=== PATIENT | female | born 1990 | race Caucasian/White ===

== ENCOUNTER 2021-04-07 10:31 | Emergency (ER) | payer OTHER, SELFPAY ==
--- NOTE | ~2021-04-07 | CT_ITS ---
EXAMINATION: CT ABDOMEN AND PELVIS WITH CONTRAST CLINICAL INFORMATION: Lower abdominal pain. Question appendicitis. COMPARISON: Pelvic ultrasound obtained the same day TECHNIQUE: Multidetector volumetric images were obtained from the superior aspect of the liver through the pubic symphysis following administration 85 mL of Omnipaque 350 intravenous contrast. Sagittal and coronal reformatted images were obtained on the technologist's workstation. Oral contrast: Yes This CT examination was performed using dose optimization techniques as appropriate, variously including the following: *Automated exposure control *Adjustment of mA and/or kV according to patient size (this includes techniques or standardized protocols for targeted exams where dose is matched to indication/reason for exam; i.e. extremities or head) *Use of iterative reconstruction technique DLP: 1113 mGy-cm FINDINGS: LUNG BASES: The visualized lung bases are unremarkable. LIVER, GALLBLADDER, AND BILIARY TREE: The liver is normal in size, shape, and attenuation. No focal hepatic lesion or biliary ductal dilatation is present. The gallbladder is unremarkable with no evidence of radiopaque gallstones, gallbladder wall thickening, or obvious pericholecystic inflammatory changes. PANCREAS: Unremarkable. SPLEEN: Unremarkable. ADRENAL GLANDS: Unremarkable. KIDNEYS AND URETERS: The kidneys are normal in size, shape, and attenuation. No hydronephrosis, hydroureter, or calculi seen. There is excreted contrast seen in the collecting systems and ureters. This lowers sensitivity for detection of a small stone. BLADDER: Unremarkable. GASTROINTESTINAL TRACT: The small and large bowel are unremarkable. The appendix is unremarkable. ABDOMINAL WALL: No significant hernia is appreciated. LYMPH NODES: Normal. VASCULAR: Unremarkable. PELVIC VISCERA: The uterus and adnexa appear unremarkable. There is a small amount of fluid in the pelvis. OSSEOUS STRUCTURES: Unremarkable. CT/CT abdomen pelvis w con IMPRESSION: Normal-appearing appendix. Small amount of fluid in the pelvis. Otherwise unremarkable exam.
--- NOTE | ~2021-04-07 | US_ITS ---
EXAMINATION: PELVIC ULTRASOUND CLINICAL INFORMATION: Severe cervical motion tenderness. Rule out ovarian torsion or abscess. COMPARISON: CT of the abdomen and pelvis performed the same day TECHNIQUE: Transabdominal and transvaginal pelvic ultrasound was performed. Transvaginal exam was performed for better visualization of the uterus and ovaries. FINDINGS: Exam is limited due to patient body habitus and bowel gas. The uterus is anteverted and measures 7.7 x 3.1 x 4.8 cm in dimension. No focal uterine lesion is seen. Endometrial thickness is normal measuring 0.5 cm. There are nabothian cysts seen in the cervix. There is a thickening and small amount of fluid seen in the endocervical canal. The ovaries are not identified. There is a small amount of fluid in the pelvis. US/US pelvic and transvaginal IMPRESSION: Limited exam. Normal-appearing uterus. Thickening and small amount of fluid in the endocervical canal. The ovaries are not seen. Ovarian torsion cannot be evaluated. Small amount of fluid in the pelvis.
--- NOTE | ~2021-04-07 | US_ITS ---
EXAMINATION: ULTRASOUND PELVIS AND TRANSVAGINAL. CLINICAL INFORMATION: Evaluate for ovarian torsion. Pain. Severe cervical motion tenderness. COMPARISON: None TECHNIQUE: Transabdominal and transvaginal imaging of pelvis is performed. FINDINGS: The uterus is anteverted and anteflexed measuring 7.7 cm in length of 2.1 cm in AP and 4.8 cm in transverse dimension. Endometrial thickness is 0.5 cm. No focal lesion seen. There are several anechoic cysts seen in the cervix suggestive of nabothian cyst. Some of the cysts appear complex. Both ovaries are not visualized at this time. Due to nonvisualization of ovaries no Doppler exam was performed. There is moderate free fluid in right adnexa. US/US pelvic ovarian doppler IMPRESSION: Unremarkable uterus. Anechoic cyst in the lower uterine segment and cervix likely simple cysts. Some of them are echogenic and complex. Both ovaries are not seen with certainty.. No Doppler was performed.
[2021-04-07 10:36] VITALS: BP 129/79; BP 144/83; PULSE 76; PULSE 90; RESP 22; TEMP 37; O2SAT 100; O2SAT 98; BMI 49.4
[2021-04-07 11:19] LABS: MANUAL DIFF FLAG NO
[2021-04-07 11:21] LABS: Basophils Percent Auto 0.2 % (0-2); Eosinophils Absolute Auto 0.1 X10*3/uL (0.0-0.4); Hemoglobin 12.8 g/dl (12.0-16.0); Imm Gran Abs Auto 0.03 X10*3/uL (0.00-0.03); Imm Gran Pct Auto 0.3 % (0.0-0.4); Lymphocytes Absolute Auto 1.6 X10*3/uL (1.2-4.9); Lymphocytes Percent Auto 16.8 % (20-40); Mean Corpuscular HGB Conc 33.7 g/dl (31.0-35.0); Mean Corpuscular Volume 83.2 fL (80-98); Mean Platelet Volume 9.9 fL (9.4-12.3); Monocytes Absolute Auto 0.5 X10*3/uL (0.1-1.2); Monocytes Percent Auto 5.1 % (2-11); Neutrophils Absolute Auto 7.5 X10*3/uL (2.0-8.3); Neutrophils Percent Auto 76.6 % (45-73); Platelet Count 330 X10*3/uL (160-400); Red Blood Count 4.57 X10*6/uL (4.20-5.50); Red Cell Distribution Width 14.5 % (11.0-16.0); White Blood Count 9.8 X10*3/uL (4.8-10.8)
[2021-04-07] MEDS: 0.9 % Sodium Chloride 1,000 ML 999 ML IV (11:26)
[2021-04-07] MEDS: ondansetron HCL 4 MG/2 ML VIAL IVPUSH (11:26)
--- NOTE | 2021-04-07 11:32 | ED.ABDPAIN ---
HPI - Abdominal Pain General Chief Complaint: Abdominal Pain Stated Complaint: ABD PAIN Time Seen by Provider: 04/07/21 11:54 Source: patient Mode of arrival: ambulatory Limitations: no limitations History of Present Illness HPI narrative: Patient presents to ED for cervical pain. Patient states feeling somebody stabbing her cervix. Patient admits to recent unprotected sexual activity. Patient denies any vaginal discharge or vaginal bleeding. Patient denies any flank pain, nausea, vomiting, fever, chills, or any abdominal pain. Patient states pain flexing the cervix. Patient admits to history of herpes but no lesions on vaginal labia. Patient denies any recent foreign body placement or IUD implantation. MD elicited complaint: abdominal pain Related Data Previous Rx's Medication Instructions Recorded doxycycline hyclate 100 mg PO BID 10 Days #19 tab 04/07/21 metronidazole 500 mg PO BID 7 Days #14 tab 04/07/21 naproxen 500 mg PO BID PRN #20 tab 04/07/21 Allergies Allergy/AdvReac Type Severity Reaction Status Date / Time Penicillins Allergy Hives Verified 04/07/21 10:59 tramadol Allergy Hives Verified 04/07/21 10:59 Review of Systems Review of Systems Yes all other systems are reviewed and are negative Constitutional: Reports as per HPI and Reports no additional constitutional complaints Eyes: Reports as per HPI and Reports no additional eye complaints Reports system reviewed and no additional complaints, except as documented and Reports as per HPI Cardiovascular: Reports as per HPI and Reports no additional cardiovascular complaints Respiratory: Reports as per HPI and Reports no additional respiratory complaints Gastrointestinal: Reports as per HPI and Reports no additional gastrointestinal complaints Genitourinary: Reports no additional female genitourinary complaints and Reports as per HPI Comments: Cervical pain Musculoskeletal: Reports no additional musculoskeletal complaints and Reports as per HPI Reports system reviewed and no additional complaints, except as documented and Reports as per HPI Psychiatric: Reports no additional psychiatric complaints and Reports as per HPI Physical Exam Vital Signs: Vital Signs: Last Vital Signs Temp 98.2 F 04/07/21 15:33 Pulse 63 04/07/21 15:33 Resp 22 H 04/07/21 15:33 BP 140/75 H 04/07/21 15:33 Pulse Ox 100 04/07/21 15:33 Body Mass Index 49.4 Const: General: cooperative, healthy appearing, comfortable, well developed, alert, awake and acute distress Orientation/consciousness: patient oriented x3 HENMT: Head: Yes normal to inspection, Yes No palpable skull fracture present, Yes normocephalic, Yes atraumatic and No abrasion Eyes: General: appearance normal, both eyes and all related structures Neck: Neck: Yes normal visual inspection, Yes full ROM, Yes no lymphadenopathy, Yes no meningeal signs, Yes trachea midline, Yes supple and No tender Chest: Chest palpation & inspection: normal inspection of the chest and normal palpation of entire chest wall Resp: Effort & Inspection: normal respiratory effort and able to speak in complete sentences Cardio: Jugular venous distension: no JVD Heart sounds: S1 normal heart sound present and S2 normal heart sound present GI: Inspection: Yes normal to inspection and No abdominal wall ecchymosis Palpation (GI): Soft to palpation, not firm, nontender, no guarding and not rigid : Other: negative for vaginal lesions. Positive for yellowish mucus discharge from cervix. Negative for lesions on the cervix. Positive for severe significant CMT. Negative for adnexal tenderness. General: No CVA tenderness and Yes no CVA tenderness Back/Spine/Pelvis: Back: no CVA tenderness, No CVA tenderness and No back tenderness Skin: General skin exam: no rashes or lesions noted and elasticity normal Neuro: General: patient oriented x3, gait normal, no meningeal signs and CN's II-XI intact bilaterally Cranial nerves: Yes CN's II-XII intact bilaterally Extrem: General: Yes normal to inspection and Yes full ROM Psych: Appearance: grossly normal, well kempt and not disheveled Course Course Course Narrative: patient will have labs drawn. When his femur sharper available will do pelvic exam and send chlamydia gonorrhea swab. Possible imaging most likely ultrasound. Pending Reevaluation(s) Reevaluation #1: Pelvic exam positive for significant CMT. negative for adnexal tenderness. Negative for any vaginal lesions. Cervix negative for any lesions. Positive for discharged from cervix. Negative for any signs of abscess a laceration of cervix vaginal labia, or vaginal leonardo. Cervical swabs for chlamydia gonorrhea, trich, BV was sent. HSV swab was sent also although there was no lesion. We will send for imaging such as ultrasound to rule out any torsion or ovarian abscess. Patient also was sent for CT scan to rule out appendicitis Although very unlikely due to patient not having any right lower quadrant pain. Patient given ceftriaxone in 1st dose of doxy Time: 13:22 Reevaluation #2: CT scan negative for any intra-abdominal processes. Pelvic ultrasound shows fluid in endocervical canal. deu To patient size Ultrasound was not able to evaluate ovaries for ovarian torsion, but CT scan was negative for ovarian cyst. Patient did not have any adnexal tenderness on palpation. although chlamydia gonorrhea came back negative patient will be still treated as PID/pelvic pain. Imaging results, history, physical exam was discussed with Dr. Payan and is agreement with plan. Time: 18:10 MDM - Abdominal Pain MDM Narrative Medical decision making narrative: PID. Pelvic pain Lab Data Result diagrams: 04/07/21 11:11 04/07/21 11:49 Labs: Lab Results 04/07/21 04/07/21 04/07/21 Range/Units 11:11 11:27 11:27 WBC 9.8 (4.8-10.8) X10*3/uL RBC 4.57 (4.20-5.50) X10*6/uL Hgb 12.8 (12.0-16.0) g/dl Hct 38.0 (37-47) % MCV 83.2 (80-98) fL MCH 28.0 (27.0-33.0) pg MCHC 33.7 (31.0-35.0) g/dl RDW 14.5 (11.0-16.0) % Plt Count 330 (160-400) X10*3/uL MPV 9.9 (9.4-12.3) fL Immature Gran % (Auto) 0.3 (0.0-0.4) % Neut % (Auto) 76.6 H (45-73) % Lymph % (Auto) 16.8 L (20-40) % Bowman % (Auto) 5.1 (2-11) % Eos % (Auto) 1.0 (0-4) % Baso % (Auto) 0.2 (0-2) % Lymph # (Auto) 1.6 (1.2-4.9) X10*3/uL Bowman # (Auto) 0.5 (0.1-1.2) X10*3/uL Eos # (Auto) 0.1 (0.0-0.4) X10*3/uL Baso # (Auto) 0.0 (0.0-0.2) X10*3/uL Abs Immat Gran (auto) 0.03 (0.00-0.03) X10*3/uL Absolute Neuts (auto) 7.5 (2.0-8.3) X10*3/uL Absolute Nucleated RBC 0.000 (0.0-0.012) X10*3/uL Nucleated RBC % (auto) 0.0 (0.0-0.2) /100WBC Sodium (135-145) mmol/L Potassium (3.3-5.1) mmol/L Chloride (96-108) mmol/L Carbon Dioxide (22-29) mmol/L Anion Gap (12-20) BUN (9-16) mg/dL Creatinine (0.5-1.4) mg/dL Estim Creat Clear Calc Estimated GFR Random Glucose (60-115) mg/dL Calcium (8.4-10.2) mg/dL Total Bilirubin (0.0-1.0) mg/dL AST (5-31) U/L ALT (0-31) U/L Alkaline Phosphatase (39-117) U/L Total Protein (6.5-8.0) g/dL Albumin (3.5-5.0) g/dL Urine Color YELLOW Urine Appearance HAZY Urine pH 7.5 (5.0-8.0) Ur Specific Comstock 1.020 (1.005-1.025) Urine Protein NEG (NEG-TRACE) MG/DL Urine Glucose (UA) NEG (NEG) MG/DL Urine Ketones NEG (NEG) MG/DL Urine Blood NEG (NEG) Urine Nitrite NEG (NEG) Ur Leukocyte Esterase NEG (NEG) Urine Test NEGATIVE (NEGATIVE) Chlam trachomat DNA PCR (Not Detect.) N.gonorrhoeae DNA (PCR) (Not Detect.) 04/07/21 04/07/21 Range/Units 11:49 12:54 WBC (4.8-10.8) X10*3/uL RBC (4.20-5.50) X10*6/uL Hgb (12.0-16.0) g/dl Hct (37-47) % MCV (80-98) fL MCH (27.0-33.0) pg MCHC (31.0-35.0) g/dl RDW (11.0-16.0) % Plt Count (160-400) X10*3/uL MPV (9.4-12.3) fL Immature Gran % (Auto) (0.0-0.4) % Neut % (Auto) (45-73) % Lymph % (Auto) (20-40) % Bowman % (Auto) (2-11) % Eos % (Auto) (0-4) % Baso % (Auto) (0-2) % Lymph # (Auto) (1.2-4.9) X10*3/uL Bowman # (Auto) (0.1-1.2) X10*3/uL Eos # (Auto) (0.0-0.4) X10*3/uL Baso # (Auto) (0.0-0.2) X10*3/uL Abs Immat Gran (auto) (0.00-0.03) X10*3/uL Absolute Neuts (auto) (2.0-8.3) X10*3/uL Absolute Nucleated RBC (0.0-0.012) X10*3/uL Nucleated RBC % (auto) (0.0-0.2) /100WBC Sodium 137 (135-145) mmol/L Potassium 4.1 (3.3-5.1) mmol/L Chloride 107 (96-108) mmol/L Carbon Dioxide 24 (22-29) mmol/L Anion Gap 10 L (12-20) BUN 10 (9-16) mg/dL Creatinine 0.69 (0.5-1.4) mg/dL Estim Creat Clear Calc 174.5 Estimated GFR > 60 Random Glucose 98 (60-115) mg/dL Calcium 8.3 L (8.4-10.2) mg/dL Total Bilirubin 0.4 (0.0-1.0) mg/dL AST 12 (5-31) U/L ALT 11 (0-31) U/L Alkaline Phosphatase 83 (39-117) U/L Total Protein 6.4 L (6.5-8.0) g/dL Albumin 3.5 (3.5-5.0) g/dL Urine Color Urine Appearance Urine pH (5.0-8.0) Ur Specific Comstock (1.005-1.025) Urine Protein (NEG-TRACE) MG/DL Urine Glucose (UA) (NEG) MG/DL Urine Ketones (NEG) MG/DL Urine Blood (NEG) Urine Nitrite (NEG) Ur Leukocyte Esterase (NEG) Urine Test (NEGATIVE) Chlam trachomat DNA PCR NOT DETECTED (Not Detect.) N.gonorrhoeae DNA (PCR) NOT DETECTED (Not Detect.) Discharge Plan Discharge Clinical Impression: Acute pelvic inflammatory disease (PID) Patient Disposition: Home, Self-Care Instructions: Pelvic Inflammatory Disease (ED), Pelvic Pain (ED) Additional Instructions: return to the ED for worsening abdominal pain, nausea, vomiting, fever, chills, flank pain, or any other concerning symptoms. Your blood work came back normal. Your urine came back negative for UTI. CT scan did not show any intra-abdominal acute processes. Ultrasound show endocervical canal thickening and fluid. Please follow up with PCP and OBGYN. Prescriptions: New doxycycline hyclate 100 mg tablet 100 mg PO BID 10 Days Qty: 19 RF: 0 metronidazole 500 mg tablet 500 mg PO BID 7 Days Qty: 14 RF: 0 naproxen 500 mg tablet 500 mg PO BID PRN (Reason: pain) Qty: 20 RF: 0 Stand Alone Forms: Work/School Release Interventions: ED Discharge Assessment Last Done: 04/07/21 18:26 Discharge Date/Time: 04/07/21 18:26 Print Language: Polish [facility] Social History Social History Alcohol intake: never Patient Tobacco Use Status: Never used Tobacco Smoked in Last 30 Days: No Use of substances other than those prescribed or required for medical reasons: Yes Substance Use Type: Marijuana Substance Use Frequency: Daily Advance Directives: No Advance Directives Information Provided: No Patient : No
[2021-04-07 12:01] LABS: Glucose Urine UA NEG (NEG); Leukocyte Esterase Urine NEG (NEG); Nitrite Urine NEG (NEG); PH 7.5 (5.0-8.0); Urine Blood NEG (NEG); Urine Ketones NEG (NEG); Urine Protein NEG (NEG-TRACE)
[2021-04-07 12:12] VITALS: BP 114/79; PULSE 62; RESP 18; TEMP 36.7; O2SAT 99
[2021-04-07 12:21] LABS: Alanine Aminotransferase 11 U/L (0-31); Albumin Level 3.5 g/dL (3.5-5.0); Alkaline Phosphatase 83 U/L (39-117); Anion Gap 10 (12-20); Aspartate Amino Transferase 12 U/L (5-31); Bilirubin Total 0.4 mg/dL (0.0-1.0); Blood Urea Nitrogen 10 mg/dL (9-16); Calcium 8.3 mg/dL (8.4-10.2); Carbon Dioxide 24 mmol/L (22-29); Chloride 107 mmol/L (96-108); Creatinine Clr Calc Pharmacy 174.5; Estimated Glomerular Filt Rate > 60; Glucose Random 98 mg/dL (60-115); Potassium 4.1 mmol/L (3.3-5.1); Sodium 137 mmol/L (135-145); Total Protein 6.4 g/dL (6.5-8.0)
[2021-04-07 12:26] LABS: Appearance Urine HAZY; Color Urine YELLOW; Urine Pregnancy NEGATIVE (NEGATIVE)
[2021-04-07 12:27] LABS: UPreg QC Valid YES
[2021-04-07] MEDS: Ketorolac Tromethamine 30 MG/ML VIAL IVPUSH (12:33)
[2021-04-07] MEDS: cefTRIAXone sodium 500 MG, Lidocaine HCl 1 % MPF 1 ML IM (13:10)
[2021-04-07 14:33] LABS: CT PCR NOT DETECTED (Not Detect.); NG PCR NOT DETECTED (Not Detect.)
[2021-04-07] MEDS: iohexoL 350 MG/ML 100 ML INFUS..BTL IV (15:26)
[2021-04-07 15:33] VITALS: BP 140/75; PULSE 63; RESP 22; TEMP 36.8; O2SAT 100
[2021-04-07] MEDS: Morphine Sulfate 4 MG/ML CARTRIDGE IVPUSH (16:18)
[2021-04-08 11:57] LABS: BV Int Neg Control Negative (Negative); BV Int Pos Control Positive (Positive)
== END 2021-04-07 18:26 | disposition home or self-care (01) ==
PROVIDERS: Physician Assistant; Emergency Provider Emergency Medicine Emergency Medical Services
DX: N73.0 Acute parametritis and pelvic cellulitis (principal); Z72.51 High risk heterosexual behavior
CPT/HCPCS: 36415; 74177; 76830; 76856; 80053; 81003; 81025; 85025; 87255; 87480; 87491; 87510; 87591; 87660; 93975; 96361; 96372; 96374; 96375; 99285; J0696; J1885; J2270; J2405; Q9967

== ENCOUNTER 2021-04-22 11:14 | Emergency (ER) | payer OTHER, SELFPAY ==
--- NOTE | ~2021-04-22 | XR_ITS ---
EXAMINATION: LEFT KNEE AND LEFT LOWER LEG X-RAY CLINICAL INFORMATION: Fall. Unable to ambulate. COMPARISON: None TECHNIQUE: 4 views of the left knee and 2 views of the left lower leg FINDINGS: Left knee: Bone alignment is normal. No fracture or dislocation is seen spaces are normal. There is no joint effusion. Left lower leg: Bone alignment is is normal. No fracture or dislocation is seen. Joint spaces are normal. Soft tissues are normal. XR/XR tibia fibula LT 2V IMPRESSION: Unremarkable exam.
--- NOTE | ~2021-04-22 | XR_ITS ---
EXAMINATION: LEFT KNEE AND LEFT LOWER LEG X-RAY CLINICAL INFORMATION: Fall. Unable to ambulate. COMPARISON: None TECHNIQUE: 4 views of the left knee and 2 views of the left lower leg FINDINGS: Left knee: Bone alignment is normal. No fracture or dislocation is seen spaces are normal. There is no joint effusion. Left lower leg: Bone alignment is is normal. No fracture or dislocation is seen. Joint spaces are normal. Soft tissues are normal. XR/XR knee LT 3V IMPRESSION: Unremarkable exam.
[2021-04-22 11:33] VITALS: BP 130/70; BP 138/51; PULSE 79; PULSE 85; RESP 18; TEMP 37; O2SAT 96; O2SAT 99; BMI 49.2
--- NOTE | 2021-04-22 11:37 | ED_ITS ---
HPI - Extremity Injury (Lower) General Chief Complaint: Extremity Injury, Lower Stated Complaint: ankle pain Time Seen by Provider: 04/22/21 11:35 Source: patient Mode of arrival: EMS Limitations: no limitations History of Present Illness HPI Narrative: Patient is a 31-year-old female with a past medical history of left knee sprain approximately 18 months ago, complaining of re-injury of left knee last evening. Patient states in December of 2019, she slipped at work and fell, she sprained her knee and has an MRI with unknown results on a disc with her. She went to physical therapy and was feeling completely better until she was walking up the stairs last night and she fell, she injured her right knee and right lower leg and was unable to get up after the fall or take any steps. She states she took gabapentin and Percocet with no relief. Today, the pain is worse, even if she is sitting still, so she called 911 to bring her to the emergency room. Related Data Previous Rx's Medication Instructions Recorded doxycycline hyclate 100 mg PO BID 10 Days #19 tab 04/07/21 metronidazole 500 mg PO BID 7 Days #14 tab 04/07/21 naproxen 500 mg PO BID PRN #20 tab 04/07/21 oxycodone 5 mg PO Q6H PRN #10 cap 04/22/21 Allergies Allergy/AdvReac Type Severity Reaction Status Date / Time Penicillins Allergy Hives Verified 04/22/21 11:32 tramadol Allergy Hives Verified 04/22/21 11:32 Review of Systems Review of Systems: Yes all other systems are reviewed and are negative [facility] Past Medical History Medical History Anxiety Asthma Depression Social History Social History Alcohol intake: never Patient Tobacco Use Status: Never used Tobacco Substance Use Type: Marijuana Advance Directives: No Advance Directives Information Provided: Yes Patient : No Physical Exam Vital Signs: Vital Signs: Last Vital Signs Temp 98.6 F 04/22/21 11:33 Pulse 79 04/22/21 11:33 Resp 18 04/22/21 11:33 BP 138/51 L 04/22/21 11:33 Pulse Ox 99 07/16/21 11:33 Body Mass Index 49.2 Const: General: cooperative, healthy appearing, comfortable and no acute distress Nutritional Appearance: obese Orientation/consciousness: patient oriented x3 Limitations: other limitations (Unable to ambulate on left leg) HENMT: Head: Yes normal to inspection, Yes No palpable skull fracture present, Yes normocephalic and Yes atraumatic Eyes: General: appearance normal, both eyes and all related structures Neck: Neck: Yes normal visual inspection and Yes full ROM Resp: Effort & Inspection: normal respiratory effort and able to speak in complete sentences Neuro: General: patient oriented x3 Extrem: Other: Left knee edema on the lateral side as well as inferior to the knee, very tender in the same areas. Patient able to flex and extend with pain. Unable to assess gait. No signs of infection noted, no ecchymosis, no lacerations. Pedal pulses intact, sensation intact, 2/5 strength LLE Course Course Course Narrative: Toradol and Oxy in ED for pain. Patient is here with her mother and is not driving home. Reevaluation(s) Reevaluation #1: PT came to the ED to evaluate the patient, after an ambulation trial, they advised she can use crutches to go up and down the stairs and then use her walker at home. Patient has a walker at home because she uses 1 at her baseline. MDM - Extremity Injury (Lower) Imaging Data left knee and lower leg xray: Attestation: I personally reviewed and interpreted this imaging study as follows: Radiologist's impression: [address] [id number] ReportSigned Patient: Rajesh Zuniga#: [id number]: 1990Acct:[id number]/Sex: 31 / FADM Date: 04/22/21Loc: HO.EDAttending Dr: Ordering Physician: Barbara He PA-C Date of Service: 04/22/21 Procedure(s): XR knee LT 3V Accession Number(s): [id number] cc: Barbara He PA-C~ EXAMINATION: LEFT KNEE AND LEFT LOWER LEG X-RAY CLINICAL INFORMATION: Fall. Unable to ambulate. COMPARISON: None TECHNIQUE: 4 views of the left knee and 2 views of the left lower leg FINDINGS: Left knee: Bone alignment is normal. No fracture or dislocation is seen spaces are normal. There is no joint effusion. Left lower leg: Bone alignment is is normal. No fracture or dislocation is seen. Joint spaces are normal. Soft tissues are normal. XR/XR knee LT 3V IMPRESSION: Unremarkable exam. Dictated By:LILLIAN JORGENSEN MDSigned By:<Electronically signed by LILLIAN JORGENSEN MD in OV>04/22/21 1215 DD/ 1135TD/TT: Secondary English Teacher: SHIREEN Discharge Plan Discharge Clinical Impression: Bursitis due to trauma, Acute pain of left knee Patient Disposition: Home, Self-Care Instructions: Knee Bursitis (ED) Additional Instructions: Please rest, use ice and ibuprofen, 600 mg every 6 hours for the next 3-4 days as needed for pain. If her pain does not improve a little bit every day over the next 3-5 days, please follow-up with your PCP as you may need physical therapy. Prescriptions: New oxycodone 5 mg capsule 5 mg PO Q6H PRN (Reason: pain) Qty: 10 RF: 0 No Action doxycycline hyclate 100 mg tablet 100 mg PO BID 10 Days Qty: 19 RF: 0 metronidazole 500 mg tablet 500 mg PO BID 7 Days Qty: 14 RF: 0 naproxen 500 mg tablet 500 mg PO BID PRN (Reason: pain) Qty: 20 RF: 0
[2021-04-22] MEDS: Ketorolac Tromethamine 60 MG/2 ML VIAL IM (13:22)
--- NOTE | 2021-04-22 13:30 | PC.NURSE ---
Pt states she was unable to bear weight and ambulate with walker at home. This RN will premedicate and attempt walker use again.
[2021-04-22] MEDS: oxyCODONE HCl Immed Release 5 MG TABLET PO (13:51)
--- NOTE | 2021-04-22 14:30 | PC.NURSE ---
PT aware of need for eval. Will come to ED shortly. Pt aware
--- NOTE | 2021-04-22 14:50 | PC.NURSE ---
PT at bedside.
[2021-04-22 15:16] VITALS: BP 138/51; PULSE 79; O2SAT 99
== END 2021-04-22 15:59 | disposition home or self-care (01) ==
PROVIDERS: Emergency Provider Emergency Medicine
DX: G89.11 Acute pain due to trauma (principal); M25.562 Pain in left knee; M71.562 Other bursitis, not elsewhere classified, left knee
CPT/HCPCS: 73562; 73590; 96372; 97161; 99283; 99284; J1885

== ENCOUNTER 2021-05-27 08:42 | Emergency (ER) | payer OTHER, SELFPAY ==
--- NOTE | ~2021-05-27 | CT_ITS ---
EXAMINATION: CT ABDOMEN AND PELVIS WITH CONTRAST CLINICAL INFORMATION: Right lower quadrant pain COMPARISON: 04/07/2021 TECHNIQUE: Multidetector volumetric images were obtained from the superior aspect of the liver through the pubic symphysis following administration 85 mL of Omnipaque 350 intravenous contrast. Sagittal and coronal reformatted images were obtained on the technologist's workstation. Oral contrast: No This CT examination was performed using dose optimization techniques as appropriate, variously including the following: *Automated exposure control *Adjustment of mA and/or kV according to patient size (this includes techniques or standardized protocols for targeted exams where dose is matched to indication/reason for exam; i.e. extremities or head) *Use of iterative reconstruction technique DLP: 981 mGy-cm FINDINGS: LUNG BASES: The visualized lung bases are unremarkable. LIVER, GALLBLADDER, AND BILIARY TREE: The liver is normal in size, shape, and attenuation. No focal hepatic lesion or biliary ductal dilatation is present. The gallbladder is unremarkable with no evidence of radiopaque gallstones, gallbladder wall thickening, or obvious pericholecystic inflammatory changes. PANCREAS: Unremarkable. SPLEEN: Unremarkable. ADRENAL GLANDS: Unremarkable. KIDNEYS AND URETERS: The kidneys are normal in size, shape, and attenuation. No hydronephrosis, hydroureter, or calculi seen. No perinephric stranding. BLADDER: Unremarkable. GASTROINTESTINAL TRACT: The small and large bowel are unremarkable. The appendix is unremarkable. ABDOMINAL WALL: No significant hernia is appreciated. LYMPH NODES: Normal. VASCULAR: Unremarkable. PELVIC VISCERA: Unremarkable. OSSEOUS STRUCTURES: Unremarkable. CT/CT abdomen pelvis w con IMPRESSION: No significant abnormality. Normal appendix.
[2021-05-27 09:41] VITALS: BP 149/93; PULSE 104; RESP 16; TEMP 36.9; O2SAT 99; BMI 49.4
[2021-05-27 10:27] LABS: IDNOW Serial# 08D9AD1C
[2021-05-27 10:28] LABS: Strep A Nucleic Acid Negative (Negative)
[2021-05-27] MEDS: 0.9 % Sodium Chloride 1,000 ML 999 ML IVCONT (10:49)
[2021-05-27 11:05] LABS: MANUAL DIFF FLAG NO
[2021-05-27 11:07] LABS: Basophils Percent Auto 0.2 % (0-2); Eosinophils Percent Auto 0.1 % (0-4); Hematocrit 38.6 % (37-47); Hemoglobin 13.3 g/dl (12.0-16.0); Imm Gran Abs Auto 0.08 X10*3/uL (0.00-0.03); Imm Gran Pct Auto 0.5 % (0.0-0.4); Lymphocytes Absolute Auto 1.3 X10*3/uL (1.2-4.9); Lymphocytes Percent Auto 8.1 % (20-40); Mean Corpuscular HGB Conc 34.5 g/dl (31.0-35.0); Mean Corpuscular Hemoglobin 28.3 pg (27.0-33.0); Mean Corpuscular Volume 82.1 fL (80-98); Mean Platelet Volume 9.5 fL (9.4-12.3); Monocytes Absolute Auto 0.9 X10*3/uL (0.1-1.2); Monocytes Percent Auto 5.8 % (2-11); Neutrophils Absolute Auto 13.4 X10*3/uL (2.0-8.3); Neutrophils Percent Auto 85.3 % (45-73); Platelet Count 310 X10*3/uL (160-400); Red Cell Distribution Width 14.2 % (11.0-16.0); White Blood Count 15.8 X10*3/uL (4.8-10.8)
[2021-05-27 11:11] LABS: Glucose Urine UA NEG (NEG); Leukocyte Esterase Urine NEG (NEG); Nitrite Urine NEG (NEG); Specific Gravity - Urine 1.025 (1.005-1.025); UACC Culture Trigger NO; Urine Blood 1+ (NEG); Urine Ketones 5 MG/DL (NEG); Urine Protein NEG (NEG-TRACE)
[2021-05-27 11:13] LABS: Appearance Urine HAZY; Color Urine YELLOW
[2021-05-27 11:25] LABS: Bacteria Urine TRACE /LPF; INTERNATIONAL NORM RATIO 1.2 (0.9-1.1); Prothrombin Time 13.5 SEC (9.9-13.0); RBC Urine 0-2 /HPF (0); Squamous Epithelial Cell Urine 2+ /LPF; WBC Urine 0-2 /HPF (0-4)
[2021-05-27 11:32] LABS: Influenza A PCR NEGATIVE (Negative); Influenza B PCR NEGATIVE (Negative); Resp Syncy Virus RNA Qual PCR NEGATIVE (Negative); SARS COV2 PCR INHOUSE NEGATIVE (Negative)
[2021-05-27 11:38] LABS: Alanine Aminotransferase 14 U/L (0-31); Albumin Level 3.9 g/dL (3.5-5.0); Alkaline Phosphatase 96 U/L (39-117); Anion Gap 15 (12-20); Aspartate Amino Transferase 13 U/L (5-31); Bilirubin Total 0.7 mg/dL (0.0-1.0); Blood Urea Nitrogen 7 mg/dL (9-16); Calcium 8.7 mg/dL (8.4-10.2); Carbon Dioxide 21 mmol/L (22-29); Chloride 105 mmol/L (96-108); Creatinine Clr Calc Pharmacy 161.2; Estimated Glomerular Filt Rate > 60; Glucose Random 95 mg/dL (60-115); Lipase 10 U/L (8-78); Magnesium 2.1 mg/dL (1.6-2.6); Potassium 3.9 mmol/L (3.3-5.1); Sodium 137 mmol/L (135-145); Total Protein 7.5 g/dL (6.5-8.0)
--- NOTE | 2021-05-27 11:41 | ED.GENADULT ---
HPI - General Adult General Chief complaint: Upper Respiratory Symptoms Stated complaint: fever, difficulty breathing Time Seen by Provider: 05/27/21 09:42 Source: patient Mode of arrival: ambulatory Limitations: no limitations History of Present Illness HPI narrative: 31-year-old female with a past medical history of obesity, anxiety, depression, asthma and currently has a torn meniscus of her knee presenting to the ED with complaints of fevers up to 103.0, chills, sore throat with white exudate, pain with swallowing, nausea, right lower quadrant and diarrhea over the past few days worse today. She reports she was recently treated for strep pharyngitis twice already in the past 2 months last time was approximately 3 weeks ago with clindamycin due to she is allergic to penicillins and her infections go way although return shortly after. Denies recent travel or sick contacts. Denies any headaches, dizziness, chest pain, shortness of breath, cough, radiation of the abdominal pain, back pain, dysuria, hematuria, abnormal vaginal discharge, black or bloody stools, constipation or any other symptom complaints or concerns at this time. MD complaint: Fever, chills, sore throat, abdominal pain with nausea and diarrhea Related Data Previous Rx's Medication Instructions Recorded doxycycline hyclate 100 mg tablet 100 mg PO BID 10 Days #19 tab 04/07/21 metronidazole 500 mg tablet 500 mg PO BID 7 Days #14 tab 04/07/21 naproxen 500 mg tablet 500 mg PO BID PRN #20 tab 04/07/21 oxycodone 5 mg capsule 5 mg PO Q6H PRN #10 cap 04/22/21 acetaminophen 300 mg-codeine 30 mg 1 tab PO Q8H PRN #10 tab 05/27/21 tablet azithromycin 250 mg tablet See Rx Instructions .ROUTE 05/27/21 .COMPLEX #6 tab dexamethasone 6 mg tablet 12 mg PO ONCE 1 Days #2 tab 05/27/21 (Decadron) ibuprofen 800 mg tablet 800 mg PO Q8H PRN #14 tab 05/27/21 ondansetron HCl 4 mg tablet 4 mg PO Q8H PRN #14 tab 05/27/21 (Zofran) Allergies Allergy/AdvReac Type Severity Reaction Status Date / Time Penicillins Allergy Hives Verified 04/22/21 11:32 tramadol Allergy Hives Verified 04/22/21 11:32 Review of Systems Review of Systems: Constitutional : Positive fever/chills/fatigue/malaise, No Weight loss, No Night Sweats ENT/Mouth : Positive sore throat, No Hearing loss, No Ear Pain, No Nasal Congestion, No Sinus Pain, No Hoarseness, No Rhinorrhea, No Swallowing Difficulty Eyes: No Eye Pain, No Swelling, No Redness, No Foreign Body, No Discharge, No Vision Changes Cardiovascular : No Chest Pain, No SOB, No Dyspnea on Exertion, No Orthopnea, No Edema, No Palpitations Respiratory : No Cough, No Sputum, No Wheezing, No Smoke Exposure, No Dyspnea Gastrointestinal : Positive nausea, positive right lower quadrant abdominal pain, positive diarrhea, No Vomiting, No Constipation, No abdominal Pain, No Hematochezia, No Melena Genitourinary : no irregular bleeding, No Dysuria, No Urinary Frequency, No Hematuria, No Urinary Incontinence, No Urgency, No Flank Pain, No Urinary Flow Changes, No Hesitancy Musculoskeletal : No joint pain, No Myalgias, No Joint Swelling Skin : No Skin Lesions, No rash Neuro : No Weakness, No Numbness, No Paresthesias, No Loss of Consciousness, No Dizziness, No Headache Psych : No Anxiety/Panic, No Depression, No SI/HI/AH/VH, No Social Issues, Heme/Lymph: No Bruising, No Bleeding,No Lymphadenopathy Endocrine : No Polyuria, No Polydipsia, No Temperature Intolerance Yes all other systems are reviewed and are negative [facility] Past Medical History Attestation statement: The following information was validated with the patient. Medical History Anxiety Asthma Depression Tear meniscus knee Social History Social History Alcohol intake: never Patient Tobacco Use Status: Never used Tobacco Substance Use Type: Marijuana Advance Directives: No Advance Directives Information Provided: No Patient : No Physical Exam Vital Signs: Vital Signs: Last Vital Signs Temp 98.4 F 05/27/21 09:41 Pulse 96 05/27/21 12:06 Resp 16 05/27/21 12:06 BP 153/100 H 05/27/21 12:06 Pulse Ox 98 05/27/21 12:06 Body Mass Index 49.4 vital signs have been reviewed as normal and appeared to be correct. Blood pressure hypertensive at 149/93. Heart rate tachycardic at 104. Respiration rate normal. Temperature normal. Oxygen saturation normal. Appearance: Alert. Oriented X3. No acute distress. Head: Normal external exam. Normocephalic. Atraumatic. Eyes: PERRLA. EOMI. Conjunctiva and sclera normal. Eyelids normal. ENT: EAC normal. TM's Normal. Posterior pharynx erythemous with exudate noted bilaterally to the tonsils. Uvula midline. Moist mucous membranes. No trismus noted. No drooling noted. No muffled voice noted. Patient tolerating her secretions well. Speaking in full sentences. Neck: Normal inspection. Neck supple. FROM. No adenopathy. Thyroid Normal. No meningeal signs. No neck mass noted. CVS: Normal heart rate and rhythm. Heart sound normal. Pulses normal throughout. No murmurs/rales/gallops. Respiratory: No respiratory distress. Painless inspiration. Breath sounds normal. No wheezes/rales/rhonchi noted. Chest nontender. No accessory muscle usage noted or decreased air movement noted. Abdomen: Soft and moderate TTP to RLQ with guarding. Nondistended. No rigidity. Bowel sounds normal in all 4 quadrants. No distention noted. No organomegaly noted. No visible injury noted. No rebound tenderness. Negative Rovsing sign. Negative obturator's sign. Negative psoas sign. Negative Gordon sign. Back: No CVA tenderness. Full range of motion noted. No rashes/lesion/induration/fluctuance or signs of infection noted. Skin: Skin warm and dry. Normal skin color. Normal skin turgor. No rashes/lesions/lacerations noted. Extremities: Extremities exhibit normal range of motion. Extremities nontender. Neuro: Oriented X 3. No motor deficit. No sensory deficit. Reflexes normal. Normal steady gait. No focal neuro deficits noted. Vascular: + radial pulses/+ 2 distal pedal pulses/+2 dorsalis pedis b/l. Normal cap refill. No cyanosis noted to upper extremity nails and lower extremity toes nails. Course Course Course Narrative: 10am - 31-year-old female presenting to the ED with complaints of fevers up to 103.0, chills, sore throat with white exudate, pain with swallowing, nausea, right lower quadrant and diarrhea over the past few days worse today. She reports she was recently treated for strep pharyngitis twice already in the past 2 months last time was approximately 3 weeks ago with clindamycin due to she is allergic to penicillins and her infections go way although return shortly after. Plan: Labs, UA, COVID/RSV/flu, rapid strep, CT scan abdomen pelvis with IV contrast, blood cultures, lactic acid, Monospot. Provide a L of IV fluids then re-evaluate. Reevaluation(s) Reevaluation #1: - [place] [id number]. Carbon dioxide 21. BUN 7. Otherwise all other labs are within normal limits. UA revealed 5 ketones and +1 blood otherwise no evidence of UTI. Serum quant negative for . Patient was negative for COVID/RSV/flu and mono. Patient was negative for strep although on my exam it appears that patient has strep. Therefore will treat with antibiotics and symptomatic knee along with instructions return if any new or worsening symptoms to follow up with primary care provider. Patient understands agrees with this plan. Time: 12:51 Medical Decision Making Medical Records Medical records reviewed: Yes I reviewed the patient's medical records. Lab Data Lab results reviewed: Yes I reviewed the patient's lab results. Result diagrams: 05/27/21 10:48 05/27/21 10:48 Labs: Lab Results 05/27/21 05/27/21 05/27/21 Range/Units 10:10 10:12 10:48 WBC 15.8 H (4.8-10.8) X10*3/uL RBC 4.70 (4.20-5.50) X10*6/uL Hgb 13.3 (12.0-16.0) g/dl Hct 38.6 (37-47) % MCV 82.1 (80-98) fL MCH 28.3 (27.0-33.0) pg MCHC 34.5 (31.0-35.0) g/dl RDW 14.2 (11.0-16.0) % Plt Count 310 (160-400) X10*3/uL MPV 9.5 (9.4-12.3) fL Immature Gran % (Auto) 0.5 H (0.0-0.4) % Neut % (Auto) 85.3 H (45-73) % Lymph % (Auto) 8.1 L (20-40) % [place] % (Auto) 5.8 (2-11) % Eos % (Auto) 0.1 (0-4) % Baso % (Auto) 0.2 (0-2) % Lymph # (Auto) 1.3 (1.2-4.9) X10*3/uL [place] # (Auto) 0.9 (0.1-1.2) X10*3/uL Eos # (Auto) 0.0 (0.0-0.4) X10*3/uL Baso # (Auto) 0.0 (0.0-0.2) X10*3/uL Abs Immat Gran (auto) 0.08 H (0.00-0.03) X10*3/uL Absolute Neuts (auto) 13.4 H (2.0-8.3) X10*3/uL Absolute Nucleated RBC 0.000 (0.0-0.012) X10*3/uL Nucleated RBC % (auto) 0.0 (0.0-0.2) /100WBC PT (9.9-13.0) SEC INR (0.9-1.1) Sodium (135-145) mmol/L Potassium (3.3-5.1) mmol/L Chloride (96-108) mmol/L Carbon Dioxide (22-29) mmol/L Anion Gap (12-20) BUN (9-16) mg/dL Creatinine (0.5-1.4) mg/dL Estim Creat Clear Calc Estimated GFR Random Glucose (60-115) mg/dL Lactic Acid (0.5-2.0) mmol/L Calcium (8.4-10.2) mg/dL Magnesium (1.6-2.6) mg/dL Total Bilirubin (0.0-1.0) mg/dL AST (5-31) U/L ALT (0-31) U/L Alkaline Phosphatase (39-117) U/L Total Protein (6.5-8.0) g/dL Albumin (3.5-5.0) g/dL Lipase (8-78) U/L Beta HCG, Quant mIU/mL Urine Color Urine Appearance Urine pH (5.0-8.0) Ur Specific [place] (1.005-1.025) Urine Protein (NEG-TRACE) MG/DL Urine Glucose (UA) (NEG) MG/DL Urine Ketones (NEG) MG/DL Urine Blood (NEG) Urine Nitrite (NEG) Ur Leukocyte Esterase (NEG) Urine RBC (0) /HPF Urine WBC (0-4) /HPF Ur Squamous Epith Cells /LPF Urine Bacteria /LPF Coronavirus (PCR) NEGATIVE (Negative) Monoscreen (Negative) Influenza Type A (PCR) NEGATIVE (Negative) Influenza Type B (PCR) NEGATIVE (Negative) RSV RNA Qual (PCR) NEGATIVE (Negative) S. pyogenes GrpA MARCELO Negative (Negative) 05/27/21 05/27/21 05/27/21 Range/Units 10:48 10:48 10:48 WBC (4.8-10.8) X10*3/uL RBC (4.20-5.50) X10*6/uL Hgb (12.0-16.0) g/dl Hct (37-47) % MCV (80-98) fL MCH (27.0-33.0) pg MCHC (31.0-35.0) g/dl RDW (11.0-16.0) % Plt Count (160-400) X10*3/uL MPV (9.4-12.3) fL Immature Gran % (Auto) (0.0-0.4) % Neut % (Auto) (45-73) % Lymph % (Auto) (20-40) % [place] % (Auto) (2-11) % Eos % (Auto) (0-4) % Baso % (Auto) (0-2) % Lymph # (Auto) (1.2-4.9) X10*3/uL [place] # (Auto) (0.1-1.2) X10*3/uL Eos # (Auto) (0.0-0.4) X10*3/uL Baso # (Auto) (0.0-0.2) X10*3/uL Abs Immat Gran (auto) (0.00-0.03) X10*3/uL Absolute Neuts (auto) (2.0-8.3) X10*3/uL Absolute Nucleated RBC (0.0-0.012) X10*3/uL Nucleated RBC % (auto) (0.0-0.2) /100WBC PT 13.5 H (9.9-13.0) SEC INR 1.2 H (0.9-1.1) Sodium 137 (135-145) mmol/L Potassium 3.9 (3.3-5.1) mmol/L Chloride 105 (96-108) mmol/L Carbon Dioxide 21 L (22-29) mmol/L Anion Gap 15 (12-20) BUN 7 L (9-16) mg/dL Creatinine 0.74 (0.5-1.4) mg/dL Estim Creat Clear Calc 161.2 Estimated GFR > 60 Random Glucose 95 (60-115) mg/dL Lactic Acid (0.5-2.0) mmol/L Calcium 8.7 (8.4-10.2) mg/dL Magnesium 2.1 (1.6-2.6) mg/dL Total Bilirubin 0.7 (0.0-1.0) mg/dL AST 13 (5-31) U/L ALT 14 (0-31) U/L Alkaline Phosphatase 96 (39-117) U/L Total Protein 7.5 (6.5-8.0) g/dL Albumin 3.9 (3.5-5.0) g/dL Lipase 10 (8-78) U/L Beta HCG, Quant < 2 mIU/mL Urine Color YELLOW Urine Appearance HAZY Urine pH 6.0 (5.0-8.0) Ur Specific [place] 1.025 (1.005-1.025) Urine Protein NEG (NEG-TRACE) MG/DL Urine Glucose (UA) NEG (NEG) MG/DL Urine Ketones 5 (NEG) MG/DL Urine Blood 1+ H (NEG) Urine Nitrite NEG (NEG) Ur Leukocyte Esterase NEG (NEG) Urine RBC 0-2 (0) /HPF Urine WBC 0-2 (0-4) /HPF Ur Squamous Epith Cells 2+ /LPF Urine Bacteria TRACE /LPF Coronavirus (PCR) (Negative) Monoscreen (Negative) Influenza Type A (PCR) (Negative) Influenza Type B (PCR) (Negative) RSV RNA Qual (PCR) (Negative) S. pyogenes GrpA MARCELO (Negative) 05/27/21 05/27/21 Range/Units 10:48 12:01 WBC (4.8-10.8) X10*3/uL RBC (4.20-5.50) X10*6/uL Hgb (12.0-16.0) g/dl Hct (37-47) % MCV (80-98) fL MCH (27.0-33.0) pg MCHC (31.0-35.0) g/dl RDW (11.0-16.0) % Plt Count (160-400) X10*3/uL MPV (9.4-12.3) fL Immature Gran % (Auto) (0.0-0.4) % Neut % (Auto) (45-73) % Lymph % (Auto) (20-40) % [place] % (Auto) (2-11) % Eos % (Auto) (0-4) % Baso % (Auto) (0-2) % Lymph # (Auto) (1.2-4.9) X10*3/uL [place] # (Auto) (0.1-1.2) X10*3/uL Eos # (Auto) (0.0-0.4) X10*3/uL Baso # (Auto) (0.0-0.2) X10*3/uL Abs Immat Gran (auto) (0.00-0.03) X10*3/uL Absolute Neuts (auto) (2.0-8.3) X10*3/uL Absolute Nucleated RBC (0.0-0.012) X10*3/uL Nucleated RBC % (auto) (0.0-0.2) /100WBC PT (9.9-13.0) SEC INR (0.9-1.1) Sodium (135-145) mmol/L Potassium (3.3-5.1) mmol/L Chloride (96-108) mmol/L Carbon Dioxide (22-29) mmol/L Anion Gap (12-20) BUN (9-16) mg/dL Creatinine (0.5-1.4) mg/dL Estim Creat Clear Calc Estimated GFR Random Glucose (60-115) mg/dL Lactic Acid 0.8 (0.5-2.0) mmol/L Calcium (8.4-10.2) mg/dL Magnesium (1.6-2.6) mg/dL Total Bilirubin (0.0-1.0) mg/dL AST (5-31) U/L ALT (0-31) U/L Alkaline Phosphatase (39-117) U/L Total Protein (6.5-8.0) g/dL Albumin (3.5-5.0) g/dL Lipase (8-78) U/L Beta HCG, Quant mIU/mL Urine Color Urine Appearance Urine pH (5.0-8.0) Ur Specific [place] (1.005-1.025) Urine Protein (NEG-TRACE) MG/DL Urine Glucose (UA) (NEG) MG/DL Urine Ketones (NEG) MG/DL Urine Blood (NEG) Urine Nitrite (NEG) Ur Leukocyte Esterase (NEG) Urine RBC (0) /HPF Urine WBC (0-4) /HPF Ur Squamous Epith Cells /LPF Urine Bacteria /LPF Coronavirus (PCR) (Negative) Monoscreen Negative (Negative) Influenza Type A (PCR) (Negative) Influenza Type B (PCR) (Negative) RSV RNA Qual (PCR) (Negative) S. pyogenes GrpA MARCELO (Negative) Imaging Data CT scan abdomen pelvis with IV contrast: Attestation: I personally reviewed and interpreted this imaging study as follows: Radiologist's impression: FINDINGS: LUNG BASES: The visualized lung bases are unremarkable.? LIVER, GALLBLADDER, AND BILIARY TREE: The liver is normal in size, shape, and attenuation. No focal hepatic lesion or biliary ductal dilatation is present. The gallbladder is unremarkable with no evidence of radiopaque gallstones, gallbladder wall thickening, or obvious pericholecystic inflammatory changes.? PANCREAS: Unremarkable.? SPLEEN: Unremarkable.? ADRENAL GLANDS: Unremarkable.? KIDNEYS AND URETERS: The kidneys are normal in size, shape, and attenuation. No hydronephrosis, hydroureter, or calculi seen. No perinephric stranding. ? BLADDER: Unremarkable.? GASTROINTESTINAL TRACT: The small and large bowel are unremarkable. The appendix is unremarkable.? ABDOMINAL WALL: No significant hernia is appreciated.? LYMPH NODES: Normal. VASCULAR: Unremarkable. PELVIC VISCERA: Unremarkable.? OSSEOUS STRUCTURES: Unremarkable.? CT/CT abdomen pelvis w con IMPRESSION: No significant abnormality. Normal appendix. Discharge Plan Discharge Clinical Impression: Upper respiratory infection, Nausea, Abdominal pain, Diarrhea Patient Disposition: Home, Self-Care Instructions: Upper Respiratory Infection (ED), Acute Nausea and Vomiting (ED), Acute Diarrhea (ED), Abdominal Pain (ED) Prescriptions: New azithromycin 250 mg tablet See Rx Instructions .ROUTE .COMPLEX Qty: 6 RF: 0 ibuprofen 800 mg tablet 800 mg PO Q8H PRN (Reason: pain) Qty: 14 RF: 0 ondansetron HCl [Zofran] 4 mg tablet 4 mg PO Q8H PRN (Reason: nausea and vomiting) Qty: 14 RF: 0 acetaminophen-codeine 300-30 mg tablet 1 tab PO Q8H PRN (Reason: pain) Qty: 10 RF: 0 dexamethasone [Decadron] 6 mg tablet 12 mg PO ONCE 1 Days Qty: 2 RF: 0 No Action doxycycline hyclate 100 mg tablet 100 mg PO BID 10 Days Qty: 19 RF: 0 metronidazole 500 mg tablet 500 mg PO BID 7 Days Qty: 14 RF: 0 naproxen 500 mg tablet 500 mg PO BID PRN (Reason: pain) Qty: 20 RF: 0 oxycodone 5 mg capsule 5 mg PO Q6H PRN (Reason: pain) Qty: 10 RF: 0 Referrals: Physician,Unknown [Primary Care Provider] - 2 days (your pcp) Print Language: [place]
[2021-05-27 11:45] LABS: HCG Quantitative < 2 mIU/mL
[2021-05-27 12:06] VITALS: BP 153/100; PULSE 96; RESP 16; O2SAT 98
[2021-05-27 12:07] LABS: Monotest Negative (Negative)
[2021-05-27] MEDS: iohexoL 350 MG/ML 100 ML INFUS..BTL 85 ML IV (12:25)
[2021-05-27 12:37] LABS: Lactic Acid 0.8 mmol/L (0.5-2.0)
== END 2021-05-27 13:24 | disposition home or self-care (01) ==
PROVIDERS: Physician Assistant Medical; Emergency Provider Internal Medicine
DX: J06.9 Acute upper respiratory infection, unspecified (principal); R11.0 Nausea; R10.9 Unspecified abdominal pain; R19.7 Diarrhea, unspecified; Z20.822 Contact with and (suspected) exposure to COVID-19
CPT/HCPCS: 0241U; 36415; 74177; 80053; 81001; 83605; 83690; 83735; 84702; 85025; 85610; 86308; 87040; 87651; 96360; 99284; 99285; Q9967